=== PATIENT | male | born 1970 | race Caucasian/White ===

== ENCOUNTER 2023-06-13 12:39 | Emergency (ER) | payer OTHER ==
[~2023-06-13] VITALS: Ht 175.3 cm; Wt 65.8 kg
[2023-06-13 12:53] VITALS: BP 144/98; PULSE 86; RESP 16; TEMP 97.7; O2SAT 99
== END 2023-06-13 13:40 | disposition left against medical advice (07) ==
LOC: MED 12:39
DX: M54.6 Pain in thoracic spine (principal); M54.50 Low back pain, unspecified; Z53.21 Procedure and treatment not carried out due to patient leaving prior to being seen by health care provider
CPT/HCPCS: 99281

== ENCOUNTER 2023-06-20 14:30 | Emergency (ER) | payer OTHER ==
[~2023-06-20] VITALS: Ht 175.3 cm; Wt 81.6 kg
[2023-06-20 14:42] VITALS: BP 158/110; PULSE 100; RESP 18; TEMP 98; O2SAT 99
[2023-06-20] MEDS: IBUPROFEN 600 MG TAB PO ONE (15:16)
[2023-06-20] MEDS ORDERED: IBUP-2213 PO (16:38)
[2023-06-20] MEDS ORDERED: LID5T TP (16:38)
[2023-06-20] MEDS ORDERED: CYCL-711 PO (16:38)
[2023-06-20 16:54] VITALS: TEMP 98
== END 2023-06-20 16:54 | disposition home or self-care (01) ==
LOC: MED 14:30
DX: S63.682A Other sprain of left thumb, initial encounter (principal); M54.50 Low back pain, unspecified; V49.88XA Car occupant (driver) (passenger) injured in other specified transport accidents, initial encounter; Y93.89 Activity, other specified; Y92.89 Other specified places as the place of occurrence of the external cause; Y99.8 Other external cause status
CPT/HCPCS: 72100; 73140; 99284